=== PATIENT | male | born 1965 | race Caucasian/White ===

== ENCOUNTER 2016-11-23 19:17 | Emergency (ER) | payer OTHER ==
[2016-11-23 19:23] VITALS: BP 123/93
--- NOTE | 2016-11-23 20:36 | RAD ---
INDICATION: Left shoulder pain COMPARISON: None TECHNIQUE: Routine frontal, Y and axial views were obtained. FINDINGS: There is a mildly distracted fracture of the inferior glenoid. There are no other fractures. The shoulder articulates normally. The AC joint is intact. IMPRESSION: AVULSION FRACTURE FROM THE INFERIOR GLENOID
--- NOTE | 2016-11-23 21:02 | ED ---
Upper Extremity Pain - HPI Summary HPI Summary: 51M presents with left shoulder pain s/p lifting today. He states that as soon as he lifts his arm with the other hand it drops and he has not strength to move it. He states he was working out when the felt a pop in his shoulder. He states he had previous work done on his right shoulder. He denies any numbness or tingling. He states pain is greatest over anterior shoulder. He is right handed. He does not work. - History of Current Complaint Chief Complaint: EDExtremityUpper Stated Complaint: LEFT SHOULDER INJURY Time Seen by Provider: 11/23/16 20:01 - Allergies/Home Medications Allergies/Adverse Reactions: Allergies Allergy/AdvReac Type Severity Reaction Status Date / Time Penicillins Allergy Severe Rash; Hives Verified 11/23/16 19:19 Oxycodone Allergy Intermediate Rash; Hives Verified 11/23/16 19:19 Adhesive Tape Allergy Mild Itching Verified 11/23/16 19:19 Coconut Flavor Allergy Mild Nausea Verified 11/23/16 19:19 Cephalexin [From Keflex] Allergy Hives Verified 11/23/16 19:19 PMH/Surg Hx/FS Hx/Imm Hx Endocrine/Hematology History: Denies: Hx Anticoagulant Therapy Respiratory History: Reports: Hx Asthma, Hx Chronic Obstructive Pulmonary Disease (COPD), Hx Sleep Apnea GI History: Reports: Hx Gastroesophageal Reflux Disease Musculoskeletal History: Reports: Hx Arthritis - 85 % OF BODY, Hx Back Problems Sensory History: Reports: Hx Contacts or Glasses - GLASSES Denies: Hx Hearing Aid Opthamlomology History: Reports: Hx Contacts or Glasses - GLASSES Neurological History: Reports: Other Neuro Impairments/Disorders - IMPULSE CONTROL DISORDER Psychiatric History: Reports: Hx Depression - Surgical History Surgery Procedure, Year, and Place: Hip Surgery; Foot Surgery; Right Shoulder Surgery Hx Anesthesia Reactions: No Infectious Disease History: Yes Infectious Disease History: Denies: Traveled Outside the [place] in Last 30 Days - Family History Known Family History: Positive: Hypertension - Social History Alcohol Use: None Substance Use Type: Reports: None Smoking Status (MU): Heavy Every Day Tobacco Smoker Review of Systems Negative: Fever Negative: Chest Pain Negative: Shortness Of Breath Positive: Myalgia - left shoulder pain All Other Systems Reviewed And Are Negative: Yes Physical Exam Triage Information Reviewed: Yes Vital Signs On Initial Exam: Initial Vitals Temp Pulse Resp BP Pulse Ox 97.6 F 114 18 123/93 98 11/23/16 19:20 11/23/16 19:20 11/23/16 19:20 11/23/16 19:20 11/23/16 19:20 Vital Signs Reviewed: Yes Appearance: Positive: Well-Appearing Skin: Positive: Warm, Dry Head/Face: Positive: Normal Head/Face Inspection Eyes: Positive: Normal, EOMI, LJ, Conjunctiva Clear ENT: Positive: Normal ENT inspection, Pharynx normal, TMs normal Respiratory/Lung Sounds: Positive: Clear to Auscultation, Breath Sounds Present Cardiovascular: Positive: Normal, RRR Musculoskeletal: Positive: Other - good pulses, positive drop arm test, good nut former strength, apply to oppose all fingers, tender over anterior shoulder Diagnostics - Vital Signs Vital Signs Temp Pulse Resp BP Pulse Ox 11/23/16 19:20 97.6 F 114 18 123/93 98 - Laboratory Lab Statement: Any lab studies that have been ordered have been reviewed, and results considered in the medical decision making process. - Radiology shoulder Xray Interpretation: Positive (See Comments) - IMPRESSION: AVULSION FRACTURE FROM THE INFERIOR GLENOID Radiology Interpretation Completed By: Radiologist Course/Dx - Course Course Of Treatment: 51M presents with left shoulder pain for a day after lifting something felt a pop. history although may not be completely true due to ETOH on exam. denies any numbness or tingling. has positive drop arm and tenderness over anterior shoulder. xray shows avuslion fracture of inferior glenoid. discussed with dr shepherd and will place in shoulder immbolizer and have follow up with ortho. - Diagnoses Differential Diagnosis/HQI/PQRI: Positive: Fracture (Closed), Strain, Sprain Provider Diagnoses: left avulsion fracture of glenoid Discharge - Discharge Plan Condition: Good Disposition: HOME Prescriptions: traMADol TAB* [Ultram*] 25 mg PO Q8H PRN #12 tab MDD 3 PRN Reason: Pain Patient Education Materials: Rotator Cuff Injury (ED) Referrals: Raymundo Rivera MD [Primary Care Provider] - Irma Hammonds MD [Medical Doctor] - Additional Instructions: Keep immobilizer on shoulder Follow up with ortho Take ibuprofen for pain every 6 hours, take narcotic for break through pain every 8 hours as needed Return to ED if develop any new or worsening symptoms
[2016-11-23] MEDS ORDERED: Ketorolac INJ* 60 MG/2 ML VIAL IM ONE (21:03)
== END 2016-11-23 22:31 | disposition home or self-care (01) ==
LOC: ED 19:17
DX: S42.142A Displaced fracture of glenoid cavity of scapula, left shoulder, initial encounter for closed fracture (principal); X50.9XXA Other and unspecified overexertion or strenuous movements or postures, initial encounter; Y93.89 Activity, other specified; Y92.9 Unspecified place or not applicable; J44.9 Chronic obstructive pulmonary disease, unspecified; K21.9 Gastro-esophageal reflux disease without esophagitis; F63.9 Impulse disorder, unspecified; F32.9 Major depressive disorder, single episode, unspecified; Z88.5 Allergy status to narcotic agent; Z88.1 Allergy status to other antibiotic agents; Z88.0 Allergy status to penicillin; Z91.048 Other nonmedicinal substance allergy status; F17.210 Nicotine dependence, cigarettes, uncomplicated
CPT/HCPCS: 96372; 99282; J1885

== ENCOUNTER 2016-12-09 23:26 | Emergency (ER) | payer OTHER ==
[2016-12-10 01:09] LABS: Hematocrit 46 % (42-52); Hemoglobin 15.2 g/dl (14.0-18.0); Mean Corpuscular HGB Conc 33 g/dl (31-36); Mean Corpuscular Hemoglobin 32 pg (27-31); Mean Corpuscular Volume 97 fL (80-94); Mean Platelet Volume 9 um3 (7.4-10.4); Red Blood Count 4.77 10^6/ul (4.0-5.4); Red Cell Distribution Width 14 % (10.5-15); White Blood Count 18.7 10^3/ul (3.5-10.8)
[2016-12-10 01:23] LABS: Albumin 4.5 g/dL (3.2-5.2); BUN/Creatinine Ratio 12.9 (8-20); Calcium 9.2 mg/dL (8.6-10.3); EGFR African American 86.1 (>60); EGFR Non-African American 66.9 (>60); Total Bilirubin 0.5 mg/dL (0.2-1.0); Total Protein 7.5 g/dL (6.4-8.9)
[2016-12-10] MEDS ORDERED: Ketorolac INJ* 30 MG/ML 1 ML VIAL IV PUSH ONE (01:35)
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
[2016-12-10] MEDS ORDERED: Oxymetazoline 0.05% NASAL SPR* 15 ML BTL RIGHT NARE ONE (02:23)
[2016-12-10] MEDS ORDERED: Ibuprofen TAB* 800 MG PO ONE (03:44)
[2016-12-10 04:02] VITALS: BP 145/87
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
--- NOTE | 2016-12-10 07:53 | RAD ---
HISTORY: Left shoulder pain COMPARISONS: December 01, 2016, November 23, 2016 VIEWS: 4, Frontal internal rotation, external rotation, outlet, and axillary views of the left shoulder FINDINGS: BONE DENSITY: Normal. BONES: Again noted is a minimally displaced fracture of the inferior margin of the glenoid, stable from the previous examination JOINTS: There is no arthropathy. ALIGNMENT: There is no dislocation. SOFT TISSUES: Unremarkable. OTHER FINDINGS: None. IMPRESSION: PERSISTENT FRACTURE OF THE INFERIOR MARGIN OF THE GLENOID
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
== END 2016-12-10 04:25 | disposition home or self-care (01) ==
LOC: ED 23:26
DX: S02.2XXA Fracture of nasal bones, initial encounter for closed fracture (principal); S00.83XA Contusion of other part of head, initial encounter; Y04.2XXA Assault by strike against or bumped into by another person, initial encounter; Y93.9 Activity, unspecified; Y92.038 Other place in apartment as the place of occurrence of the external cause; M25.512 Pain in left shoulder; R07.89 Other chest pain; H53.8 Other visual disturbances; J44.9 Chronic obstructive pulmonary disease, unspecified; K21.9 Gastro-esophageal reflux disease without esophagitis; F32.9 Major depressive disorder, single episode, unspecified; Z88.5 Allergy status to narcotic agent; Z88.6 Allergy status to analgesic agent; Z88.1 Allergy status to other antibiotic agents; Z88.0 Allergy status to penicillin; Z91.048 Other nonmedicinal substance allergy status; F17.210 Nicotine dependence, cigarettes, uncomplicated
CPT/HCPCS: 17250; 36415; 70450; 70486; 71250; 72125; 80053; 85025; 96374; 99283; A9270-GY; J1885

== ENCOUNTER 2017-02-05 14:46 | Emergency (ER) | payer OTHER ==
[2017-02-05] MEDS ORDERED: diPHENhydraMINE PO* 50 MG PO ONE (16:26)
[2017-02-05] MEDS ORDERED: Ketorolac INJ* 60 MG/2 ML VIAL IM ONE (16:26)
[2017-02-05] MEDS ORDERED: predniSONE TAB* 10 MG PO ONE (16:27)
--- NOTE | 2017-02-05 16:34 | ED ---
Skin Complaint - HPI Summary HPI Summary: 51 male presents to ED with complaints of redness, swelling, itching and soreness to left elbow, back of head and right ankle after being stung my wasps yesterday. Patient states it hurts to move his arm due to soreness and swelling. Also states he has a diffuse frontal headache from the stings that he has been unable to get rid of after trying aleve and tylenol. Took 4 325mg tylenol this morning without relief. States the bee stings are itching. Denies difficulty breathing, SOB and chest pain. No throat swelling or tightness. No discharge from bee stings. Has not applied any topical cream to areas. No vision changes, nausea/vomiting. No other complaints at this time. No PMHx. - History of Current Complaint Chief Complaint: EDExtremityUpper Time Seen by Provider: 02/05/17 15:51 Stated Complaint: LT ARM PAIN/BEE STING Hx Obtained From: Patient Onset/Duration: Started Days Ago - 1, Traumatic - bee stings, Still Present, Worse Since Skin Exposure Onset/Duration: Days Ago - 1 Timing: Constant Onset Severity: Moderate Current Severity: Moderate Pain Intensity: 6 Pain Scale Used: 0-10 Numeric Skin Location: Arm - left, Leg - right, Other: - scalp Character: Swelling, Pruritus, Redness, Raised, Painful Aggravating Symptom(s): Touch - movement Alleviating Symptom(s): Nothing Associated Signs & Symptoms: Rash Related History: Insect Bite/Sting - bee - Allergy/Home Medications Allergies/Adverse Reactions: Allergies Allergy/AdvReac Type Severity Reaction Status Date / Time Penicillins Allergy Severe Rash; Hives Verified 11/23/16 19:19 Adhesive Tape Allergy Mild Itching Verified 12/21/16 10:23 Coconut Flavor Allergy Mild Nausea Verified 11/23/16 19:19 Cephalexin [From Keflex] Allergy Hives Verified 11/23/16 19:19 Cyclobenzaprine Allergy Rash And Verified 12/21/16 10:23 [From Flexeril] Itching Hydrocodone [From [place]] Allergy Rash; Hives Verified 12/09/16 23:34 PMH/Surg Hx/FS Hx/Imm Hx Endocrine/Hematology History: Denies: Hx Anticoagulant Therapy Respiratory History: Reports: Hx Asthma - no inhaler, Hx Chronic Obstructive Pulmonary Disease (COPD), Hx Sleep Apnea, Other Respiratory Problems/Disorders - COPD GI History: Reports: Hx Gastroesophageal Reflux Disease - on med Musculoskeletal History: Reports: Hx Arthritis - reports 85 % OF BODY, Hx Back Problems Sensory History: Reports: Hx Contacts or Glasses - GLASSES Denies: Hx Hearing Aid Opthamlomology History: Reports: Hx Contacts or Glasses - GLASSES Neurological History: Reports: Other Neuro Impairments/Disorders - IMPULSE CONTROL DISORDER, no meds Psychiatric History: Reports: Hx Depression - no meds - Surgical History Surgery Procedure, Year, and Place: Hip Surgery - [facility] – [place]. ankle fusion - horseheads and screws removed later date- [facility] [place]. Right Shoulder Surgery - [facility] Hx Anesthesia Reactions: No Infectious Disease History: No Infectious Disease History: Reports: Hx Hepatitis - hx hep c Denies: Traveled Outside the [place] in Last 30 Days - Family History Known Family History: Positive: Hypertension - Social History Alcohol Use: None Substance Use Type: Reports: None Smoking Status (MU): Heavy Every Day Tobacco Smoker Amount Used/How Often: 1/2 ppd for 35 years Review of Systems Constitutional: Negative Eyes: Negative ENT: Negative Cardiovascular: Negative Respiratory: Negative Gastrointestinal: Negative Positive: Arthralgia, Myalgia - at bee stings when moving arm Positive: Rash - bee stings Positive: Headache All Other Systems Reviewed And Are Negative: Yes Physical Exam Triage Information Reviewed: Yes Vital Signs On Initial Exam: Initial Vitals Temp Pulse Resp BP Pulse Ox 97.8 F 111 20 138/97 96 02/05/17 14:49 02/05/17 14:49 02/05/17 14:49 02/05/17 14:49 02/05/17 14:49 tachycardia noted, patient anxious, discomfort Vital Signs Reviewed: Yes Appearance: Positive: Well-Appearing, No Pain Distress, Well-Nourished Skin: Positive: Warm, Skin Color Reflects Adequate Perfusion, Dry, Erythema @ - to left elbow, right posterior scalp and right ankle due to bee stings, swollen , erythematous, tender. no discharge appears to be local allergic reaction.. Negative: Cold, Tender, Cyanosis @, Pale Head/Face: Positive: Normal Head/Face Inspection Eyes: Positive: EOMI, LJ, Conjunctiva Clear ENT: Positive: Normal ENT inspection, Hearing grossly normal, Pharynx normal. Negative: Pharyngeal erythema, TMs normal Dental: Negative: Cervical Lymphadenopathy Neck: Positive: Supple, Nontender, No Lymphadenopathy Respiratory/Lung Sounds: Positive: Clear to Auscultation, Breath Sounds Present. Negative: Rales, Rhonchi, Wheezes Cardiovascular: Positive: Normal, RRR, Pulses are Symmetrical in both Upper and Lower Extremities. Negative: Murmur, Rub Abdomen Description: Positive: Nontender Bowel Sounds: Positive: Present Musculoskeletal: Positive: Normal, Strength/ROM Intact, Pain @ - with movement of left elbow due to soreness of sting bite, but is able Neurological: Positive: Normal, Sensory/Motor Intact, Alert, Oriented to Person Place, Time, CN Intact II-III, Reflexes Intact, NV Bundle Intact Distally, Normal Gait, Facial Symmetry, Speech Normal. Negative: Slurred Speech Psychiatric: Positive: Affect/Mood Appropriate Diagnostics - Vital Signs Vital Signs Temp Pulse Resp BP Pulse Ox 02/05/17 15:47 97.8 F 111 20 138/97 96 02/05/17 14:49 97.8 F 111 20 138/97 96 - Laboratory Lab Statement: Any lab studies that have been ordered have been reviewed, and results considered in the medical decision making process. Re-Evaluation - Re-Evaluation First Eval Re-Evaluation Time: 17:00 Change: Improved - patient was feeling better after medication Course/Dx - Course Course Of Treatment: due to appearance of bee stings will treat for local allergic reaction. also given pain management for headache. had relief. will send 5 day script of benadryl and prednisone to prevent worsening allergic reaction. advised to use topical benadryl or hydrocortisone cream. cool compresses. continue NSAID for headache, recommended excedrin. Follow up PCP. Aware of worsening signs and symptoms to watch out for. Do not appear to be infected at this time. - Differential Diagnoses - Skin Complaint Differential Diagnoses: Allergic Reaction, Local Allergic Reaction, MRSA, Urticaria, Other - headache, migraine - Diagnoses Provider Diagnoses: Bee sting reaction, Headache Discharge - Discharge Plan Condition: Stable Disposition: HOME Prescriptions: Diphenhydramine-Zinc Acetate [Benadryl Itch Stopping] 1 cre TOPICAL DAILY PRN # 1 cre PRN Reason: Itching diPHENhydraMINE PO* [Benadryl PO 25 MG TAB*] 25 mg PO BEDTIME PRN #5 tab PRN Reason: Itching predniSONE TAB* [Deltasone TAB*] 20 mg PO DAILY #3 tab Patient Education Materials: Insect Bite or Sting (ED), Acute Headache (ED) Referrals: Raymundo Rivera MD [Primary Care Provider] - Additional Instructions: Recommend taking excedrin to help with pain and headache. Apply cool compresses to bee stings. Take prescribed medication as directed for allergic reaction to bee sting. Also recommend using topical benadryl cream to help with itching and inflammation, three times daily on areas of itching. Drink plenty of fluids and get plenty of rest. Follow up PCP. If symptoms worsen or do not improve please seek medical attention promptly, as discussed.
[2017-02-05 17:02] VITALS: BP 143/87
== END 2017-02-05 17:01 | disposition home or self-care (01) ==
LOC: ED 14:46
DX: T63.441A Toxic effect of venom of bees, accidental (unintentional), initial encounter (principal); Y92.9 Unspecified place or not applicable; R51 Headache; K21.9 Gastro-esophageal reflux disease without esophagitis; F63.9 Impulse disorder, unspecified; J44.9 Chronic obstructive pulmonary disease, unspecified; F17.210 Nicotine dependence, cigarettes, uncomplicated; M19.90 Unspecified osteoarthritis, unspecified site
CPT/HCPCS: 96372; 99282; A9270-GY; J1885; J7512

== ENCOUNTER 2018-07-07 05:18 | Emergency (ER) | payer OTHER ==
[2018-07-07 05:40] LABS: ABS Basophils 0.1 10^3/ul (0-0.2); ABS Eosinophils 0.2 10^3/ul (0-0.6); ABS Lymphocytes 2.6 10^3/ul (1.0-4.8); ABS Monocytes 1.5 10^3/ul (0-0.8); ABS Neutrophils 8.3 10^3/ul (1.5-7.7); ABS Nucleated RBC 0 10^3/ul; Eosinophil % 1.8 %; Hematocrit 45 % (42-52); Hemoglobin 15.5 g/dl (14.0-18.0); Lymphocyte % 20.8 %; Mean Corpuscular HGB Conc 35 g/dl (31-36); Mean Corpuscular Hemoglobin 32 pg (27-31); Mean Corpuscular Volume 93 fL (80-94); Mean Platelet Volume 8.4 fL (7.4-10.4); Nucleated Red Blood Cells % 0.1; Platelet Count 238 10^3/ul (150-450); Red Blood Count 4.83 10^6/ul (4.00-5.40); Red Cell Distribution Width 14 % (10.5-15); White Blood Count 12.8 10^3/ul (3.5-10.8)
--- NOTE | 2018-07-07 05:52 | ED ---
Complaint/Male - History of Current Complaint Chief Complaint: EDUrogenitalProblems Time Seen by Provider: 07/07/18 05:39 Hx Obtained From: Patient - Allergies/Home Medications Allergies/Adverse Reactions: Allergies Allergy/AdvReac Type Severity Reaction Status Date / Time MS Penicillins [Penicillins] Allergy Severe Rash; Hives Verified 11/23/16 19:19 Adhesive Tape Allergy Mild Itching Verified 12/21/16 10:23 MS Coconut Flavor Allergy Mild Nausea Verified 11/23/16 19:19 [Coconut Flavor] MS Cephalexin [From Keflex] Allergy Hives Verified 11/23/16 19:19 MS Cyclobenzaprine Allergy Rash And Verified 12/21/16 10:23 [From Flexeril] Itching MS Hydrocodone [From [place]] Allergy Rash; Hives Verified 12/09/16 23:34 PMH/Surg Hx/FS Hx/Imm Hx Endocrine/Hematology History: Denies: Hx Anticoagulant Therapy Respiratory History: Reports: Hx Asthma - no inhaler, Hx Chronic Obstructive Pulmonary Disease (COPD), Hx Sleep Apnea, Other Respiratory Problems/Disorders - COPD GI History: Reports: Hx Gastroesophageal Reflux Disease - on med Musculoskeletal History: Reports: Hx Arthritis - reports 85 % OF BODY, Hx Back Problems Sensory History: Reports: Hx Contacts or Glasses - GLASSES Denies: Hx Hearing Aid Opthamlomology History: Reports: Hx Contacts or Glasses - GLASSES Neurological History: Reports: Other Neuro Impairments/Disorders - IMPULSE CONTROL DISORDER, no meds Psychiatric History: Reports: Hx Depression - no meds - Surgical History Surgery Procedure, Year, and Place: Hip Surgery - [facility] [place]. ankle fusion - horse[place] and screws removed later date- [facility] [place]. Right Shoulder Surgery - [facility] [place] Hx Anesthesia Reactions: No Infectious Disease History: No Infectious Disease History: Reports: Hx Hepatitis - hx hep c Denies: Traveled Outside the [place] in Last 30 Days - Family History Known Family History: Positive: Hypertension - Social History Alcohol Use: None Substance Use Type: Reports: None Smoking Status (MU): Heavy Every Day Tobacco Smoker Amount Used/How Often: 1/2 ppd for 35 years Physical Exam Vital Signs On Initial Exam: Initial Vitals Temp Pulse Resp BP Pulse Ox 97.7 F 98 16 123/92 98 07/07/18 05:28 07/07/18 05:28 07/07/18 05:28 07/07/18 05:28 07/07/18 05:28 Diagnostics - Vital Signs Vital Signs Temp Pulse Resp BP Pulse Ox 07/07/18 05:31 95 98 07/07/18 05:30 94 123/92 99 07/07/18 05:28 97.7 F 98 16 123/92 98 - Laboratory Lab Results: Lab Results 07/07/18 Range/Units 05:32 WBC 12.8 H (3.5-10.8) 10^3/ul RBC 4.83 (4.00-5.40) 10^6/ul Hgb 15.5 (14.0-18.0) g/dl Hct 45 (42-52) % MCV 93 (80-94) fL MCH 32 H (27-31) pg MCHC 35 (31-36) g/dl RDW 14 (10.5-15) % Plt Count 238 (150-450) 10^3/ul MPV 8.4 (7.4-10.4) fL Neut % (Auto) 65.1 % Lymph % (Auto) 20.8 % [place] % (Auto) 11.4 % Eos % (Auto) 1.8 % Baso % (Auto) 0.9 % Absolute Neuts (auto) 8.3 H (1.5-7.7) 10^3/ul Absolute Lymphs (auto) 2.6 (1.0-4.8) 10^3/ul Absolute Monos (auto) 1.5 H (0-0.8) 10^3/ul Absolute Eos (auto) 0.2 (0-0.6) 10^3/ul Absolute Basos (auto) 0.1 (0-0.2) 10^3/ul Absolute Nucleated RBC 0 10^3/ul Nucleated RBC % 0.1 Result Diagrams: 07/07/18 05:32 Lab Statement: Any lab studies that have been ordered have been reviewed, and results considered in the medical decision making process.
[2018-07-07 05:58] LABS: Calcium 9.5 mg/dL (8.6-10.3); EGFR Non-African American 61.1 (>60); Potassium 3.8 mmol/L (3.5-5.0)
--- NOTE | 2018-07-07 05:59 | ED ---
GI/ HPI - HPI Summary HPI Summary: Patient is a 52-year-old male who presents to emergency department for difficulty urinating 3 days. Patient states urine has been "trickling" out. Patient notes discomfort to the end of his penis. He denies any abdominal pain or flank pain preceding symptoms. Patient denies fever, chills, nausea, vomiting. He denies significant past medical history of acid reflux. Denies drug or alcohol use. Patient denies hematuria or history of kidney stones. Symptoms are mild to moderate in severity. No current modifying factors. - History of Current Complaint Chief Complaint: EDUrogenitalProblems Time Seen by Provider: 07/07/18 05:39 Stated Complaint: UABLE TO URINATE Hx Obtained From: Patient Pain Intensity: 7 - Allergy/Home Medications Allergies/Adverse Reactions: Allergies Allergy/AdvReac Type Severity Reaction Status Date / Time acetaminophen [From [place]] Allergy Rash Verified 07/07/18 05:54 adhesive tape Allergy Itching Verified 07/07/18 05:54 cephalexin [From Keflex] Allergy Hives Verified 07/07/18 05:54 cyclobenzaprine Allergy Rash And Verified 07/07/18 05:54 [From Flexeril] Itching hydrocodone [From [place]] Allergy Rash Verified 07/07/18 05:54 Penicillins Allergy Rash Verified 07/07/18 05:54 Home Medications: Home Medications Omeprazole 40 mg PO DAILY 07/07/18 [History Confirmed 07/07/18] PMH/Surg Hx/FS Hx/Imm Hx Previously Healthy: Yes Endocrine/Hematology History: Denies: Hx Anticoagulant Therapy Respiratory History: Reports: Hx Asthma - no inhaler, Hx Chronic Obstructive Pulmonary Disease (COPD), Hx Sleep Apnea, Other Respiratory Problems/Disorders - COPD GI History: Reports: Hx Gastroesophageal Reflux Disease - on med Musculoskeletal History: Reports: Hx Arthritis - reports 85 % OF BODY, Hx Back Problems Sensory History: Reports: Hx Contacts or Glasses - GLASSES Denies: Hx Hearing Aid Opthamlomology History: Reports: Hx Contacts or Glasses - GLASSES Neurological History: Reports: Other Neuro Impairments/Disorders - IMPULSE CONTROL DISORDER, no meds Psychiatric History: Reports: Hx Depression - no meds - Surgical History Surgery Procedure, Year, and Place: Hip Surgery - [facility] [place]. ankle fusion - horseheads and screws removed later date- [facility] [place]. Right Shoulder Surgery - [facility] [place] Hx Anesthesia Reactions: No Infectious Disease History: No Infectious Disease History: Reports: Hx Hepatitis - hx hep c Denies: Traveled Outside the [place] in Last 30 Days - Family History Known Family History: Positive: Hypertension - Social History Occupation: Disabled Lives: Alone Alcohol Use: None Substance Use Type: Reports: None Smoking Status (MU): Heavy Every Day Tobacco Smoker Amount Used/How Often: 1/2 ppd for 35 years Review of Systems Constitutional: Negative Negative: Fever, Chills Gastrointestinal: Negative Negative: Abdominal Pain, Vomiting, Diarrhea, Nausea Positive: other - difficulty urinating. Pain to tip of penis All Other Systems Reviewed And Are Negative: Yes Physical Exam Triage Information Reviewed: Yes Vital Signs On Initial Exam: Initial Vitals Temp Pulse Resp BP Pulse Ox 97.7 F 98 16 123/92 98 07/07/18 05:28 07/07/18 05:28 07/07/18 05:28 07/07/18 05:28 07/07/18 05:28 Vital Signs Reviewed: Yes Appearance: Positive: Well-Appearing - Pt. lying in bed in NAD. Skin: Positive: Warm, Dry Head/Face: Positive: Normal Head/Face Inspection Eyes: Positive: Normal, EOMI Cardiovascular: Positive: Normal, RRR Abdomen Description: Positive: Nontender, Soft Male Genital Exam: Positive: Other - Exam performed with nurseMyla. Circumcised penis noted. Tip of penis is erythematous and mildly edematous. Tender to palpation. No urethral discharge. Neurological: Positive: Normal, CN Intact II-III Diagnostics - Vital Signs Vital Signs Temp Pulse Resp BP Pulse Ox 07/07/18 05:31 95 98 07/07/18 05:30 94 123/92 99 07/07/18 05:28 97.7 F 98 16 123/92 98 - Laboratory Lab Results: Lab Results 07/07/18 Range/Units 05:32 WBC 12.8 H (3.5-10.8) 10^3/ul RBC 4.83 (4.00-5.40) 10^6/ul Hgb 15.5 (14.0-18.0) g/dl Hct 45 (42-52) % MCV 93 (80-94) fL MCH 32 H (27-31) pg MCHC 35 (31-36) g/dl RDW 14 (10.5-15) % Plt Count 238 (150-450) 10^3/ul MPV 8.4 (7.4-10.4) fL Neut % (Auto) 65.1 % Lymph % (Auto) 20.8 % [place] % (Auto) 11.4 % Eos % (Auto) 1.8 % Baso % (Auto) 0.9 % Absolute Neuts (auto) 8.3 H (1.5-7.7) 10^3/ul Absolute Lymphs (auto) 2.6 (1.0-4.8) 10^3/ul Absolute Monos (auto) 1.5 H (0-0.8) 10^3/ul Absolute Eos (auto) 0.2 (0-0.6) 10^3/ul Absolute Basos (auto) 0.1 (0-0.2) 10^3/ul Absolute Nucleated RBC 0 10^3/ul Nucleated RBC % 0.1 Result Diagrams: 07/07/18 05:32 07/07/18 05:32 Lab Statement: Any lab studies that have been ordered have been reviewed, and results considered in the medical decision making process. GIGU Course/Dx - Course Course Of Treatment: Pt. presenting for difficulty urinating. Bladder scan showed only 35ml. On exam there is mild erythema and edema to tip of penis. EXam consistant with a balanitis. Pt. states he feels something is blocking urethra. CBC shows mild leukocytosis. Pending u/a. Will obtain KUB to evaluate for calculus/FB. Xray negative for acute findings per radiology. CMP shows mild elevation in cr. Culture swabs obtained. Case discussed with Dr. Mcdowell who agrees with topical tx and outpt. f.u. Pt. stared on lotrizone cream in ED. Advised to call PCP and urology for a close up apt. TO keep area clean and dry. Warm sitz baths. To return to ER if sxs change or worsen. Pt. understands and agrees with plan. - Diagnoses Differential Diagnoses - Male: Balanitis, Renal Colic, STD Provider Diagnoses: Balanitis Discharge - Sign-Out/Discharge Documenting (check all that apply): Patient Departure Patient Received Moderate/Deep Sedation with Procedure: No - Discharge Plan Condition: Good Disposition: HOME Prescriptions: Clotrimazole/Betamethasone* [Lotrisone Cream*] 1 applic TOPICAL BID #60 tube Patient Education Materials: Balanitis (ED) Referrals: Raymundo Rivera MD [Primary Care Provider] - Nathaniel Moeller MD [Medical Doctor] - Additional Instructions: Call your PCP today to schedule an appointment with your PCP and urology Use cream as direct twice a day Keep tip of penis clean and dry Warm sitz baths to help with pain and swelling Return to ER if symptoms change or worsen - Billing Disposition and Condition Condition: GOOD Disposition: Home
[2018-07-07] MEDS ORDERED: Clotrimazole/Betamethasone CREAM* 15 GM TOPICAL ONE (06:39)
[2018-07-07 07:59] VITALS: BP 132/84
[2018-07-07 14:02] LABS: Neisseria gonorrhoeae (GC) RNA Negative (Negative)
== END 2018-07-07 07:59 | disposition home or self-care (01) ==
LOC: ED 05:18
DX: N48.1 Balanitis (principal); K21.9 Gastro-esophageal reflux disease without esophagitis; Z88.6 Allergy status to analgesic agent; Z88.1 Allergy status to other antibiotic agents; Z88.5 Allergy status to narcotic agent; Z88.0 Allergy status to penicillin; Z88.8 Allergy status to other drugs, medicaments and biological substances; Z91.048 Other nonmedicinal substance allergy status; F17.200 Nicotine dependence, unspecified, uncomplicated
CPT/HCPCS: 36415; 74018; 80048; 85025; 87491; 87591; 99283; A9270-GY

== ENCOUNTER 2019-05-15 10:26 | Day surgery (SDC) | payer OTHER ==
[~2019-05-15 10:26] MED LIST: Buffered Lidocaine 1% SYRIN* 1 ML/SYRINGE INTRADERM ONE; Lactated Ringers 1000 ML Bag* 1,000 ML IV SCH
[2019-05-15] MEDS ORDERED: Buffered Lidocaine 1% SYRIN* 1 ML/SYRINGE INTRADERM ONE (11:52)
[2019-05-15] MEDS ORDERED: Clindamycin 900 MG/D5W BAG(*) 900 MG/50 ML BAG IVPB ONE (11:52)
[2019-05-15] MEDS ORDERED: fentaNYL* 50 MCG/ML 2 ML VIAL (100 MCG VIAL) ONE ×4 (13:31→18:00)
[2019-05-15] MEDS ORDERED: Midazolam* 1 MG/ML 2 ML VIAL (2 MG) ONE (13:31)
[2019-05-15] MEDS ORDERED: Lidocaine 1% INJ* 10 MG/ML 30 ML SDV ONE (13:51)
[2019-05-15] MEDS ORDERED: Bupivacaine 0.25% SDV* 30 ML ONE (13:51)
[2019-05-15] MEDS ORDERED: Lidocaine 1% w EPI 1:100,000* MDV 20 ML VIAL ONE (13:51)
[2019-05-15] MEDS ORDERED: Famotidine IV* 10 MG/ML 2 ML (20 mg) ONE (13:56)
[2019-05-15] MEDS ORDERED: Dexamethasone IV* 4 MG/ML 1 ML (4 MG) ONE (14:17)
[2019-05-15] MEDS ORDERED: Propofol* 10 MG/ML 20 ML BTL ONE (14:17)
[2019-05-15] MEDS ORDERED: Ketorolac INJ* 30 MG/ML 1 ML VIAL ONE (14:17)
[2019-05-15] MEDS ORDERED: Dexmedetomidine* 200 MCG/2 ML 2 ML VIAL ONE (14:50)
[2019-05-15] MEDS ORDERED: DiMENhydriNATE IV* 50 MG/ML VIAL IV PUSH PRN (17:07)
[2019-05-15] MEDS ORDERED: Naloxone* 0.4 MG/ML 1 ML VIAL IV PRN (17:07)
[2019-05-15] MEDS ORDERED: Ondansetron INJ* 2 MG/ML VIAL IV PRN (17:07)
[2019-05-15] MEDS ORDERED: Levalbuterol 0.63MG/3ML NEB* UNIT OF USE INH PRN (17:07)
[2019-05-15] MEDS: fentaNYL* 50 MCG/ML 2 ML VIAL (100 MCG VIAL) IV PRN ×3 (17:33→18:28)
[2019-05-15] MEDS ORDERED: traMADol TAB* 50 MG ONE (18:01)
[2019-05-15 19:10] VITALS: BP 119/82
--- NOTE | 2019-05-16 02:51 | OP ---
DATE OF OPERATION: 05/15/19 - [facility] DATE OF : 69 SURGEON: Huang Block MD MATERIAL CUTTER: NGUYEN Yeboah. An assistant quality manager was needed for the procedure to aid in positioning of the arm and retraction. ANESTHESIOLOGIST: Dr. Thompson. ANESTHESIA: General. PRE-OP DIAGNOSES: 1. 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 2. Right thumb carpometacarpal degenerative joint disease. POST-OP DIAGNOSES: 1. 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 2. Right thumb carpometacarpal degenerative joint disease. OPERATIVE PROCEDURE: 1. Right wrist scaphoid excision. 2. Right wrist 4-corner fusion with autogenous distal radius bone graft as well as bone graft taken from the scaphoid and the trapezium. 3. Right wrist posterior interosseous nerve neurectomy. 4. Right thumb carpometacarpal arthroplasty with trapeziectomy. 5. Right distally based split flexor carpi radialis tendon transfer for thumb suspension and tendon interposition. INDICATIONS: Mr. Jones has significant wrist arthritis. The radial scaphoid joint is clearly the worse, he has had really progressive and quite severe wrist pain. Additionally, he has a lot of thumb base pain to go along with this and radiographic degeneration in the carpometacarpal joint seen both on x- ray and MRI. We had talked about treatment options. He wanted to proceed with surgery. I told him I thought we could do a proximal row carpectomy and address the carpometacarpal joint with a CMC arthroplasty. He agreed and wanted to proceed. ESTIMATED BLOOD LOSS: 10 mL. COMPLICATIONS: None. FINDINGS: Significant capitolunate arthritis was noted with significant full thickness cartilage loss precluding the ability to do a proximal row carpectomy and causing us to do a 4-corner fusion. DESCRIPTION OF PROCEDURE: Mr. Jones was seen in the preoperative holding area. The correct side, site, and procedures were identified. We came back to the operating room. The arm was prepped and draped in the usual fashion and time-out was performed. The arm was exsanguinated with the Esmarch and the tourniquet was inflated to 250 mmHg. I first made a 2 to 3 cm incision over the thumb metacarpal base. Dissection was carried down. Full thickness flaps were raised while taking care to preserve the longitudinal sensory nerves. The radial artery was mobilized and protected throughout the surgery. The capsule was opened and subperiosteal flaps were raised to expose the trapezium. The trapezium was then excised in piecemeal fashion until it was excised in its entirety. The FCR tendon was preserved in the base of the wound. I then used sequentially larger drill bits to create a bone tunnel from the dorsal radial aspect of the thumb metacarpal base exiting out the volar ulnar articular surface. At this point, everything was looking good. The wound was irrigated out and we turned our attention to the wrist. I made a longitudinal incision over the dorsum of the wrist. Dissection was carried down. Full thickness flaps were raised off the extensor retinaculum. Retinacular flaps were raised. The tendons of the fourth and fifth dorsal compartments were retracted ulnarly. The third and second dorsal compartments were retracted radially. The wrist was flexed. A distally based capsular U- flap was raised to expose the carpus. The significant radioscaphoid arthritis was noted. I used the McGlamry elevator to release the soft tissue about the scaphoid together with a threaded Steinmann pin as a joystick. The scaphoid was excised. I then inspected the capitolunate joint and noted full thickness cartilage loss on about 40% of the proximal capitate and on the proximal pole of the hamate as well. I do not think with the extent of cartilage loss even a proximal row carpectomy with dorsal capsular interposition would be a possibility. I decided to convert to a 4-corner fusion. I used the 2.4 mm veronica and rongeur to prepare the articular surfaces of the capitate, the lunate, the hamate, the triquetrum as well as the capital hamate joint and the lunotriquetral joint. I then provisionally pinned these into place with some 0.62 K wires. I flexed down the wrist. I placed the guidewire for mini Acutrak screw. I measured and selected a 30 mm screw. This was placed in antegrade fashion through the lunate up into the capitate. I then placed a second wire from the triquetrum up through the hamate and into the capitate. I measured and placed a 28 mm mini -Acutrak screw. This provided excellent compression. I packed the distal radius bone graft prior to compressing. I looked for any spaces impacting additional distal radius bone grafting where I could find any space. At this point, everything was looking good. AP and lateral imaging confirmed good alignment. The wound was irrigated out. I did go ahead for pain control. I went ahead and excised the distal 2 to 3 cm of the posterior interosseous nerve. After the posterior interosseous nerve was excised, I went ahead and closed the dorsal capsule with 3-0 PDS suture. The retinaculum was repaired with 3-0 PDS suture. Skin was closed with anali. Lastly to complete the carpometacarpal arthroplasty, I went ahead and made a transverse incision just proximal to the wrist flexion crease over the distal FCR tendon. The sheath was released. Two additional 1 cm transverse incisions were made at different intervals over the FCR tendon. The sheath was released. The tendon was brought up into the wound. The tendon was split longitudinally and a 26 gauge wire was passed through the tendon split. A Perla clamp was then used to retrieve the wire and pull this proximally releasing half the tendon in the musculotendinous junction. The tendon was then delivered down into the thumb base wound using the 26 gauge wires. The tendon split was taken all the way down to the base of the second metacarpal. Free tendon tail was taken through the bone tunnel. It was then weaved back around the intact limb and maximum tension was set as the tendon transfer was secured with multiple 3-0 [id number] Ethibond sutures. The first sewing all three limbs of the tendon transfer together, the last two sewing intact limb to intact limb. At this point, everything was looking very good. The capsule was closed with 3- 0 Vicryl suture. Skin was closed with 4-0 nylon suture. The 0.25% Marcaine was infiltrated around all of the operative areas. Wounds were dressed with Xeroform, 4x4's, sterile Webril, and then a thumb spica splint. Short arm thumb spica splint was applied leaving the IP joint free. The wrist was secured as well given the 4- corner fusion with additional plaster. Tourniquet was deflated and he was taken to the recovery room in stable condition. [id number]/[facility] #: [id number] [facility]ITALFarooq
== END 2019-05-15 19:04 | disposition home or self-care (01) ==
LOC: OR 10:26
PROVIDERS: ATTEND Orthopaedic Surgery Hand Surgery
DX: M19.231 Secondary osteoarthritis, right wrist (principal); M18.11 Unilateral primary osteoarthritis of first carpometacarpal joint, right hand; G47.33 Obstructive sleep apnea (adult) (pediatric); J44.9 Chronic obstructive pulmonary disease, unspecified; F17.210 Nicotine dependence, cigarettes, uncomplicated; K21.9 Gastro-esophageal reflux disease without esophagitis; M10.9 Gout, unspecified
CPT/HCPCS: 76000; A9270-GY; C1713; C1776; J1100; J1885; J2250; J2704; J3010; J3490